=== PATIENT | male | born 1985 | race Caucasian/White ===

== ENCOUNTER 2017-10-09 07:51 | Day surgery (SDC) | payer OTHER ==
[2017-10-08 10:34] LABS: Absolute Lymphocytes (CBC) 2.3 K/uL (0.7-4.9); Absolute Monocytes 0.7 K/uL (0.1-1.3); Absolute Neutrophil 3.2 K/uL (1.8-8.0); Basophils % 0.6 % (0-1.3); Eosinophils % 2.3 % (0-4.4); Hematocrit 45.1 % (39.6-49.0); MCH 29.9 pg (27.0-35.0); MCV 87.7 fL (80-100); MPV 7.3 fL (7.6-11.3); RBC Red Blood Cell Count 5.13 M/uL (4.33-5.43)
[2017-10-08 11:34] LABS: Potassium 4.3 mmol/L (3.5-5.1)
[2017-10-09] MEDS ORDERED: CEFAZOLIN/SWI 1gm 1 GM/10 ML SYR ONE (09:26)
[2017-10-09] MEDS ORDERED: Ringers Lactate 1,000 ML IV ONE (09:26)
[2017-10-09] MEDS ORDERED: LIDOCAINE 1% W/EPI 1:100,000 MDV 50 ML VIAL ONE (10:02)
[2017-10-09] MEDS ORDERED: PROPOFOL 200 MG/20 ML VIAL IV ONE ×2 (10:17→10:26)
[2017-10-09] MEDS ORDERED: LIDOCAINE 2% MPF 5 ML VIAL ONE (10:17)
[2017-10-09] MEDS ORDERED: ROCURONIUM 50 MG/5 ML VIAL IV ONE (10:17)
[2017-10-09] MEDS ORDERED: MIDAZOLAM HCL 2 MG/2 ML INJ ONE (10:17)
[2017-10-09] MEDS ORDERED: FENTANYL CITR 100 MCG/2 ML ONE (10:17)
[2017-10-09] MEDS ORDERED: DEXAMETHASONE 10 MG/ML VIAL ONE (10:33)
[2017-10-09] MEDS ORDERED: KETOROLAC 30 MG/ML INJ ONE (10:33)
--- NOTE | 2017-10-09 11:05 | P.BOP ---
Preoperative diagnosis: scalp tender mass Postoperative diagnosis: same Primary procedure: Excisional biopsy of scalp subq mass 3 x 2.5 cm Estimated blood loss: <10cc Specimen: mass Findings: mass Anesthesia: General Transferred to: Recovery Room Condition: Good
--- NOTE | 2017-10-14 02:05 | OP ---
Date of Procedure: 10/09/2017 Surgeon: Dada Thompson MD Preoperative Diagnosis: Scalp tender mass. Postoperative Diagnosis: Scalp tender mass. Procedure: Excisional biopsy of scalp, subcutaneous tender mass, 3 x 2.5 cm. Specimen: Mass. Findings: Mass. Anesthesia: General plus local. Indications: This is a case of a 32-year-old patient, with the mass on the scalp region, increasing in size, getting pain and discomfort. He wants that excised. Benefits, alternatives, and risks of e xcision were fully explained which include but are not limited to infection, bleeding, damage to sarah cent structures, anesthesia complication, alopecia, chronic pain, chronic numbness, [place], even , r ecurrence too. He also understands this may not relieve any symptoms. He might need more than one s urgical intervention. He understood and signed a consent. The area of concern was marked by me and the patient in the holding room. Description Of Procedure: The patient was brought to the operating room, placed in supine position. Anesthesia was done without complication. Scalp area was prepped and draped in sterile fashion. A time-out was called. A wedge incision was made to include the skin over the area of the mass. The m ass goes all the way down deep to [place] but does not penetrate the bone. So mass was completely exci sed. The area was irrigated. After that, I proceeded to close the area with mattress sutures 3-0 ny kathryn interrupted multiple times. The patient tolerated the procedure well. Sponge count and instrume nt counts were correct. The patient sent to recovery in stable condition. Diagnosis: Scalp tender mass. Procedure: Excisional biopsy of scalp, subcutaneous mass 3 x 2.5 cm. Disposition: Home. Activity: As tolerated. No heavy lifting. Followup: Follow up in my office in 1 week. Call for appointment [phone]. Keep area dry for 48 ho urs, then may shower and then put Neosporin and sterile dressings over the area. Avoid direct sunlig ht. Medications: See orders. GIRISH/MODL Voice ID: [id number] Report ID: [id number]
== END 2017-10-09 12:28 | disposition home or self-care (01) ==
LOC: OR 07:51
PROVIDERS: ATTEND Surgery
PROC: 0JB00ZX Excision of Scalp Subcutaneous Tissue and Fascia, Open Approach, Diagnostic (ICD-10-PCS; principal; 2017-10-09 10:30)
DX: L72.11 Pilar cyst (principal)
CPT/HCPCS: 36415; 80048; 85025; 88304; 88305; J0690; J1100; J2250; J3010